=== PATIENT | female | born 1990 | race Caucasian/White ===

== ENCOUNTER 2017-12-04 11:36 | Emergency (ER) | payer MEDICAID, OTHER ==
[~2017-12-04] VITALS: Ht 165.1 cm; Wt 60.0 kg
[~2017-12-04 11:36] MED LIST: NAPR-1154 PO
[2017-12-04 11:50] VITALS: BP 147/57
[2017-12-04] MEDS ORDERED: ketorolac trometh inj. 60 MG/2 ML VIAL IM ONE (12:00)
[2017-12-04] MEDS ORDERED: oxyCODONE/APAP 10/325mg tablet PO ONE (12:00)
[2017-12-04] MEDS ORDERED: HYDR-565 PO (12:06)
== END 2017-12-04 12:38 | disposition home or self-care (01) ==
LOC: ER 11:36
DX: S22.32XA Fracture of one rib, left side, initial encounter for closed fracture (principal); Z88.5 Allergy status to narcotic agent; Z79.899 Other long term (current) drug therapy; W18.31XA Fall on same level due to stepping on an object, initial encounter; Y93.89 Activity, other specified; Y92.814 Boat as the place of occurrence of the external cause; Y99.8 Other external cause status
CPT/HCPCS: 96372; 99283; J1885

== ENCOUNTER 2018-07-26 10:23 | Emergency (ER) | payer MEDICAID ==
[~2018-07-26] VITALS: Ht 170.2 cm; Wt 77.0 kg
[2018-07-26 10:33] VITALS: BP 137/74
--- NOTE | 2018-07-26 10:52 | NUR ---
CALL PLACED TO SOC FOR PSYC CONSULT. PT IN QUEUE.
[2018-07-26 11:25] LABS: URINE HCG NEGATIVE (NEG)
[2018-07-26] MEDS ORDERED: LAMO25TA94 PO (11:53)
[2018-07-26] MEDS ORDERED: HYDR-3686 PO (11:53)
--- NOTE | 2018-07-26 12:01 | NUR ---
SPOKE WITH PSYCHIATRIST, SHE IS FAXING OVER HER RECOMMENDATIONS, PATIENT IS CONSIDERED LOW RISK PER THE SUICIDE RISK ASSESSMENT
== END 2018-07-26 12:18 | disposition home or self-care (01) ==
LOC: ER 10:23
DX: F32.9 Major depressive disorder, single episode, unspecified (principal); F41.9 Anxiety disorder, unspecified; G43.909 Migraine, unspecified, not intractable, without status migrainosus; Z88.6 Allergy status to analgesic agent
CPT/HCPCS: 81025; 99284

== ENCOUNTER 2018-12-24 14:41 | Emergency (ER) | payer MEDICAID ==
[~2018-12-24 14:41] MED LIST changes: +AMIT25TA10 PO; +AMOX-422 PO; -NAPR-1154 PO; +QUET50TA PO
[2018-12-24] MEDS ORDERED: HYDR-4353 PO (14:48)
== END 2018-12-24 14:45 | disposition home or self-care (01) ==
LOC: ER 14:41
DX: G89.18 Other acute postprocedural pain (principal); M79.642 Pain in left hand; G43.909 Migraine, unspecified, not intractable, without status migrainosus; Z88.5 Allergy status to narcotic agent; Z88.6 Allergy status to analgesic agent; Z79.899 Other long term (current) drug therapy
CPT/HCPCS: 99283

== ENCOUNTER 2019-06-27 16:01 | Emergency (ER) | payer MEDICAID ==
[~2019-06-27] VITALS: Ht 167.6 cm; Wt 68.2 kg
--- NOTE | 2019-06-27 16:12 | NUR ---
CALLED POISON CONTROL FOR OD SEROQUEL 50MG @1HR AGO. SPOKE WITH MINISTERIO, PHARMACIST. MONITOR AIRWAY FOR APNEA X3HRS. IF QTC >500, GIVE IV MAG 1-2GRAMS. IF HYPOTENSIVE, IVF AND REPOSITION.SZ CAN OCCUR IF PT TOOK >10,000MG. ETOH, APAP, TOX SCREEN, AND ASA LEVEL.
[2019-06-27] MEDS ORDERED: magnesium 2GM in 50ml NS 50 ML IV ONE ×2 (16:25→16:45)
[2019-06-27] MEDS ORDERED: normal saline 1000ML IV soln IVB ONE (16:25)
[2019-06-27 16:43] LABS: URINE HCG NEGATIVE (NEG)
[2019-06-27 16:43] LABS: BASOPHILS % (AUTO) 0.7 % (0-1); EOSINOPHILS # (AUTO) 0.1 X10'3 (0-0.9); EOSINOPHILS % (AUTO) 0.9 % (0-6); LYMPHOCYTES # (AUTO) 3.5 X10'3 (1.1-4.8); MONOCYTES # (AUTO) 0.6 X10'3 (0-0.9); MONOCYTES % (AUTO) 8.9 % (2-12); NEUTROPHILS # (AUTO) 2.3 X10'3 (1.8-7.7); WHITE BLOOD COUNT 6.5 X10'3 (4.5-11.0)
[2019-06-27 16:45] LABS: HEMATOCRIT 41.5 % (35.0-45.0); LYMPHOCYTES % (AUTO) 54.2 % (21-51); MEAN CORPUSCULAR HEMOGLOBIN 30.9 PG (27.0-31.0); MEAN CORPUSCULAR HGB CONC 33.9 g/dL (33.0-36.5); MEAN CORPUSCULAR VOLUME 91.3 FL (78-98); MEAN PLATELET VOLUME 7.8 FL (7.4-10.4); NEUTROPHILS % (AUTO) 35.3 % (42-75); PLATELET COUNT 315 X10'3 (140-440); RED BLOOD COUNT 4.54 X10'6 (4.20-5.60); RED CELL DISTRIBUTION WIDTH 13.7 % (11.5-14.5)
[2019-06-27 16:56] LABS: URINE AMPHETAMINE SCREEN NEGATIVE (Neg); URINE BARBITUATE SCREEN NEGATIVE (Neg); URINE BENZODIAZEPINES SCREEN NEGATIVE (Neg); URINE CANNABINOID SCREEN NEGATIVE (Neg); URINE COCAINE SCREEN NEGATIVE (Neg); URINE METHADONE SCREEN NEGATIVE (Neg); URINE OPIATE SCREEN NEGATIVE (Neg); URINE PHENCYCLIDINE SCREEN NEGATIVE (Neg)
[2019-06-27 17:06] LABS: TOTAL CELLS COUNTED 100
[2019-06-27 17:07] LABS: PLATELET ESTIMATE NORMAL
--- NOTE | 2019-06-27 17:21 | NUR ---
Pt continues to have low core temp reading on the capone cath. Additional warm blankets given to the patient for warming measures.
[2019-06-27 17:38] LABS: ALANINE AMINOTRANSFERASE 37 U/L (12-78); ALBUMIN 2.8 G/DL (3.4-5.0); ALBUMIN/GLOBULIN RATIO 0.7 (1.1-1.5); ALKALINE PHOSPHATASE 105 IU/L (46-116); ANION GAP 12 (8-16); ASPARTATE AMINO TRANSFERASE 29 U/L (10-37); BILIRUBIN,TOTAL 0.1 MG/DL (0.1-1.0); BLOOD UREA NITROGEN 6 MG/DL (7-18); CALCIUM 7.6 MG/DL (8.5-10.1); CHLORIDE 116 MMOL/L (99-107); CREATININE 0.75 MG/DL (0.40-0.90); ETHANOL 0.194 GM/DL (0.0-0.010); GLUCOSE 122 MG/DL (70-104); POTASSIUM 3.6 MMOL/L (3.5-5.1); SODIUM 148 MMOL/L (135-145); TOTAL CARBON DIOXIDE 20.4 MMOL/L (24-32); TOTAL PROTEIN 6.6 G/DL (6.4-8.2); eGFR > 90 ML/MIN
[2019-06-27 17:43] LABS: ACETAMINOPHEN < 2.0 UG/ML (10-30)
--- NOTE | 2019-06-27 21:18 | NUR ---
Pt assisted via w/c from ED bed 3 to ED bed 25 and care of the patient transferred to [facility] L[facility]. Pt to be continually monitored while awaiting evaluation from [facility].
--- NOTE | 2019-06-27 21:20 | NUR ---
Pt transferred to bed 25 via wheelchair; able to walk to bed and change into green scrubs independently. Pt states "I just want to sleep" but agrees to complete admit process. Pt was intoxicated and ingested Seroquel 50mg tablets (estimated 20 tabs by EMS). This medication is prescribed for her r/t to dg Bipolar. Pt stated there was not a trigger for this attempt, just that her depression and mood "go up and down." Pt has history of suicide attempts by cutting, but states this is her first OD and hospitlization r/t mental health. Pt denies SI but states depression is "high; I don't feel much of anything", Denies Anxiety. Mood: "I don't feel anything", Appears downcast; Affect: Flat; Eye Contact: Poor; Thought Process: Linear; Speech: Normal, soft, Minimal responses. Pt states she has not been complaint with prescribed medications for her mood disorder. Social Hx: Currently living with ex bf, states she will soon be kicked out and without a residence No job From [place]: Maintains contact with Dad, Estranged from siblings and mother Local friends Recreational Drug Use: Hx Cocaine (infreq., last used 06/24); THC (infreq.); Meth (Infreq., retracted statement saying last use was 06/27), ETOH (0.194 at admit) Addendum: 06/27/19 at 2247 by [facility] Med Hx: Migraines, Asthma, "Hole in heart"
[2019-06-27 22:06] LABS: CLARITY,URINE CLEAR (Clear); COLOR,URINE STRAW (Yellow); GLUCOSE, URINE NEGATIVE (Neg); KETONES,URINE NEGATIVE (Neg); LEUKOCYTE ESTERASE ,URINE NEGATIVE (Neg); NITRITES, URINE NEGATIVE (Neg); OCCULT BLOOD,URINE TRACE-INTACT (Neg); PROTEIN,URINE NEGATIVE (Neg); UROBILINOGEN,URINE 0.2 E.U/dL (0.2-1.0)
[2019-06-27 22:07] LABS: UA COLLECTION TYPE FOLEY CATH
[2019-06-27 22:12] LABS: BACTERIA,URINE NONE SEEN /HPF (Neg); RBC,URINE 0-2 /HPF (0-2); WBC,URINE NONE SEEN /HPF (0-4)
[2019-06-27 22:13] LABS: SQUAMOUS EPITHELIAL CELL,UR FEW /LPF (FEW)
--- NOTE | 2019-06-28 00:15 | NUR ---
Pt sleeping, no distress noted. Observed to changed position and take a sip of water before returning to sleep.
--- NOTE | 2019-06-28 01:15 | NUR ---
Pt sleeping, supine. Breaths even and unlabored.
--- NOTE | 2019-06-28 04:15 | NUR ---
pt packet faxed to [facility]
--- NOTE | 2019-06-28 04:51 | NUR ---
Pt sleeping. Addendum: 06/28/19 at 0452 by [facility] No distress noted, will continue to monitor.
[2019-06-28 05:39] VITALS: BP 101/68
--- NOTE | 2019-06-28 07:14 | NUR ---
Patient sleeping. Respirations unlabored. NAD at this time.
--- NOTE | 2019-06-28 08:45 | NUR ---
pt is supine, appears to be sleeping. does not appear to be in distress.
--- NOTE | 2019-06-28 08:54 | NUR ---
[facility] IS AT BEDSIDE TALKING WITH THE PATIENT.
--- NOTE | 2019-06-28 09:40 | NUR ---
PT BOYFRIEND IN TO SEE PT, NO SPEAKING WITH SHIRIN FROM [facility]
== END 2019-06-28 10:14 | disposition home or self-care (01) ==
LOC: ER 16:01
DX: T43.592A Poisoning by other antipsychotics and neuroleptics, intentional self-harm, initial encounter (principal); F10.920 Alcohol use, unspecified with intoxication, uncomplicated; G43.909 Migraine, unspecified, not intractable, without status migrainosus; R41.82 Altered mental status, unspecified; Z88.5 Allergy status to narcotic agent; Z79.899 Other long term (current) drug therapy; Y92.89 Other specified places as the place of occurrence of the external cause; Y90.9 Presence of alcohol in blood, level not specified
CPT/HCPCS: 36415; 80053; 80305; 80320; 80329; 81001; 81025; 85025; 93005; 96365; 96366; 99285; J3475; J7030

== ENCOUNTER 2019-10-22 14:55 | Emergency (ER) | payer MEDICAID ==
[~2019-10-22] VITALS: Ht 170.2 cm; Wt 67.2 kg
[~2019-10-22 14:55] MED LIST changes: -AMIT25TA10 PO; -AMOX-422 PO
[2019-10-22 14:57] VITALS: BP 110/78
[2019-10-22] MEDS ORDERED: ketorolac trometh. 30mg/ml inj. IM ONE (16:50)
[2019-10-22] MEDS ORDERED: acetaminophen 325mg tablet PO ONE (16:50)
== END 2019-10-22 17:22 | disposition home or self-care (01) ==
LOC: ER 14:55
DX: S22.31XA Fracture of one rib, right side, initial encounter for closed fracture (principal); G43.909 Migraine, unspecified, not intractable, without status migrainosus; Z88.5 Allergy status to narcotic agent; W18.30XA Fall on same level, unspecified, initial encounter; Y93.89 Activity, other specified; Y92.89 Other specified places as the place of occurrence of the external cause; Y99.9 Unspecified external cause status
CPT/HCPCS: 71101; 96372; 99283; J1885

== ENCOUNTER 2019-10-28 21:52 | Emergency (ER) | payer MEDICAID ==
[~2019-10-28] VITALS: Ht 170.2 cm; Wt 68.1 kg
[2019-10-28 21:59] VITALS: BP 112/82
== END 2019-10-28 22:43 | disposition home or self-care (01) ==
LOC: ER 21:52
DX: S00.11XA Contusion of right eyelid and periocular area, initial encounter (principal); G43.909 Migraine, unspecified, not intractable, without status migrainosus; F17.200 Nicotine dependence, unspecified, uncomplicated; F12.90 Cannabis use, unspecified, uncomplicated; Z88.5 Allergy status to narcotic agent; Y04.0XXA Assault by unarmed brawl or fight, initial encounter; Y93.89 Activity, other specified; Y92.89 Other specified places as the place of occurrence of the external cause; Y99.9 Unspecified external cause status
CPT/HCPCS: 99283

== ENCOUNTER 2020-03-02 09:01 | Emergency (ER) | payer MEDICAID ==
[~2020-03-02] VITALS: Ht 170.2 cm; Wt 65.0 kg
[2020-03-02 09:05] VITALS: BP 125/72
[2020-03-02] MEDS ORDERED: PENI250T2 PO (10:45)
== END 2020-03-02 10:49 | disposition home or self-care (01) ==
LOC: ER 09:01
DX: K08.89 Other specified disorders of teeth and supporting structures (principal); G43.909 Migraine, unspecified, not intractable, without status migrainosus; F12.90 Cannabis use, unspecified, uncomplicated; Z72.89 Other problems related to lifestyle; Z88.5 Allergy status to narcotic agent; Z79.899 Other long term (current) drug therapy
CPT/HCPCS: 99283

== ENCOUNTER 2020-06-30 21:53 | Emergency (ER) | payer MEDICAID, OTHER ==
[~2020-06-30] VITALS: Ht 170.2 cm; Wt 60.8 kg
[2020-06-30] MEDS ORDERED: acetaminophen 325mg tablet PO ONE (23:50)
[2020-07-01] MEDS ORDERED: MEDR150D9 IM (00:11)
--- NOTE | 2020-07-01 00:16 | NUR ---
Clarified with MD if x ray protocol to right lower extremity needed. MD prefers US.
--- NOTE | 2020-07-01 01:43 | NUR ---
VASCULAR US AT BEDSIDE.
[2020-07-01 02:27] VITALS: BP 132/92
== END 2020-07-01 02:36 | disposition home or self-care (01) ==
LOC: ER 21:53
DX: M79.671 Pain in right foot (principal); G43.909 Migraine, unspecified, not intractable, without status migrainosus; F12.90 Cannabis use, unspecified, uncomplicated; Z72.89 Other problems related to lifestyle; Z88.5 Allergy status to narcotic agent; Z88.6 Allergy status to analgesic agent; Z79.899 Other long term (current) drug therapy; W22.8XXA Striking against or struck by other objects, initial encounter; Y93.89 Activity, other specified; Y92.89 Other specified places as the place of occurrence of the external cause; Y99.0 Civilian activity done for income or pay
CPT/HCPCS: 93971; 99284

== ENCOUNTER 2021-12-13 22:26 | Emergency (ER) | payer MEDICAID, OTHER ==
[~2021-12-13] VITALS: Ht 167.6 cm; Wt 72.7 kg
[~2021-12-13 22:26] MED LIST changes: +MEDR150D9 IM; -QUET50TA PO
[2021-12-13] MEDS ORDERED: normal saline 1000ml 1,000 ML IV ONE (22:50)
[2021-12-13] MEDS ORDERED: ONDA4TAB12 PO (22:55)
[2021-12-13 23:16] LABS: BASOPHILS # (AUTO) 0.1 X10'3 (0-0.2); BASOPHILS % (AUTO) 0.5 % (0-1); EOSINOPHILS # (AUTO) 0.1 X10'3 (0-0.9); EOSINOPHILS % (AUTO) 0.9 % (0-6); HEMATOCRIT 38.5 % (35.0-45.0); HEMOGLOBIN 12.9 g/dl (12.0-16.0); LYMPHOCYTES # (AUTO) 3.2 X10'3 (1.1-4.8); LYMPHOCYTES % (AUTO) 31.5 % (21-51); MEAN CORPUSCULAR HEMOGLOBIN 30.4 PG (27.0-31.0); MEAN CORPUSCULAR HGB CONC 33.5 g/dL (33.0-36.5); MEAN CORPUSCULAR VOLUME 90.7 FL (78-98); MEAN PLATELET VOLUME 7.1 FL (7.4-10.4); MONOCYTES # (AUTO) 0.8 X10'3 (0-0.9); MONOCYTES % (AUTO) 8.2 % (2-12); NEUTROPHILS % (AUTO) 58.9 % (42-75); PLATELET COUNT 320 X10'3 (140-440); RED BLOOD COUNT 4.24 X10'6 (4.20-5.60); RED CELL DISTRIBUTION WIDTH 13.3 % (11.5-14.5); WHITE BLOOD COUNT 10.1 X10'3 (4.5-11.0)
[2021-12-13 23:20] LABS: URINE HCG NEGATIVE (NEG)
[2021-12-13 23:23] LABS: CLARITY,URINE CLEAR (Clear); COLOR,URINE YELLOW (Yellow); GLUCOSE, URINE NEGATIVE (Neg); KETONES,URINE NEGATIVE (Neg); LEUKOCYTE ESTERASE ,URINE NEGATIVE (Neg); NITRITES, URINE NEGATIVE (Neg); OCCULT BLOOD,URINE SMALL (Neg); PROTEIN,URINE NEGATIVE (Neg); UROBILINOGEN,URINE 0.2 E.U/dL (0.2-1.0)
[2021-12-13 23:25] LABS: ALANINE AMINOTRANSFERASE 51 U/L (12-78); ALBUMIN 3.3 G/DL (3.4-5.0); ALBUMIN/GLOBULIN RATIO 0.8 (1.1-1.5); ALKALINE PHOSPHATASE 99 IU/L (46-116); ANION GAP 7 (8-16); ASPARTATE AMINO TRANSFERASE 29 U/L (10-37); BILIRUBIN,TOTAL 0.1 MG/DL (0.1-1.0); BLOOD UREA NITROGEN 13 MG/DL (7-18); BUN/CREATININE RATIO 13.3 (6.6-38.0); CALCIUM 8.5 MG/DL (8.5-10.1); CHLORIDE 108 MMOL/L (99-107); CREATININE 0.98 MG/DL (0.40-0.90); GLUCOSE 108 MG/DL (70-104); LIPASE 106 U/L (73-393); POTASSIUM 3.9 MMOL/L (3.5-5.1); SODIUM 140 MMOL/L (135-145); TOTAL CARBON DIOXIDE 25.4 MMOL/L (24-32); TOTAL PROTEIN 7.3 G/DL (6.4-8.2); eGFR 66 ML/MIN
[2021-12-13 23:28] LABS: UA COLLECTION TYPE CLN CATCH MIDSTREAM; WBC,URINE NONE SEEN /HPF (0-4)
[2021-12-13 23:29] LABS: BACTERIA,URINE FEW /HPF (Neg); RBC,URINE 0-2 /HPF (0-2); SQUAMOUS EPITHELIAL CELL,UR FEW /LPF (FEW)
[2021-12-13 23:52] LABS: HCG SERUM QL NEGATIVE
[2021-12-14 00:32] VITALS: BP 162/94
== END 2021-12-14 00:12 | disposition home or self-care (01) ==
LOC: ER 22:26
DX: E86.0 Dehydration (principal); A08.4 Viral intestinal infection, unspecified; G43.909 Migraine, unspecified, not intractable, without status migrainosus; F12.90 Cannabis use, unspecified, uncomplicated; Z72.89 Other problems related to lifestyle; Z88.5 Allergy status to narcotic agent; Z88.6 Allergy status to analgesic agent; Z79.899 Other long term (current) drug therapy
CPT/HCPCS: 80053; 81001; 81025; 83690; 84703; 85025; 96360; 99283; J7030

== ENCOUNTER 2022-04-23 14:01 | Emergency (ER) | payer MEDICAID ==
[~2022-04-23] VITALS: Ht 167.6 cm; Wt 80.9 kg
[~2022-04-23 14:01] MED LIST changes: +ONDA4TAB12 PO
[2022-04-23 15:02] LABS: CLARITY,URINE SLIGHTLY CLOUDY (Clear); COLOR,URINE YELLOW (Yellow); GLUCOSE, URINE NEGATIVE (Neg); KETONES,URINE NEGATIVE (Neg); LEUKOCYTE ESTERASE ,URINE TRACE (Neg); NITRITES, URINE NEGATIVE (Neg); OCCULT BLOOD,URINE TRACE-INTACT (Neg); PH,URINE 5.5 (4.8-8.0); PROTEIN,URINE NEGATIVE (Neg); UROBILINOGEN,URINE 0.2 E.U/dL (0.2-1.0)
[2022-04-23 15:04] LABS: URINE HCG NEGATIVE (NEG)
[2022-04-23 15:11] LABS: UA COLLECTION TYPE CLN CATCH MIDSTREAM
[2022-04-23 15:12] LABS: BACTERIA,URINE FEW /HPF (Neg); RBC,URINE 0-2 /HPF (0-2); SQUAMOUS EPITHELIAL CELL,UR FEW /LPF (FEW); WBC,URINE 0-4 /HPF (0-4)
[2022-04-23] MEDS ORDERED: CIPR-259 PO (15:20)
[2022-04-23] MEDS ORDERED: ciprofloxacin 250mg tablet PO ONE (15:25)
[2022-04-23] MEDS ORDERED: ketorolac tromethamine 15mg/ml inj. IM ONE (15:25)
[2022-04-23 15:30] VITALS: BP 123/75
== END 2022-04-23 16:02 | disposition home or self-care (01) ==
LOC: ER 14:01
DX: N12 Tubulo-interstitial nephritis, not specified as acute or chronic (principal); G43.909 Migraine, unspecified, not intractable, without status migrainosus; Z88.5 Allergy status to narcotic agent; Z79.899 Other long term (current) drug therapy; F12.10 Cannabis abuse, uncomplicated
CPT/HCPCS: 81001; 81025; 87088; 96372; 99283; J1885

== ENCOUNTER 2022-04-26 21:02 | Emergency (ER) | payer MEDICAID ==
[~2022-04-26] VITALS: Ht 167.6 cm; Wt 80.9 kg
[~2022-04-26 21:02] MED LIST changes: +CIPR-259 PO
[2022-04-26 21:06] VITALS: BP 123/84
[2022-04-26 21:39] LABS: CLARITY,URINE CLEAR (Clear); COLOR,URINE YELLOW (Yellow); GLUCOSE, URINE NEGATIVE (Neg); KETONES,URINE NEGATIVE (Neg); LEUKOCYTE ESTERASE ,URINE NEGATIVE (Neg); NITRITES, URINE NEGATIVE (Neg); OCCULT BLOOD,URINE NEGATIVE (Neg); PH,URINE 5.5 (4.8-8.0); PROTEIN,URINE NEGATIVE (Neg); UROBILINOGEN,URINE 0.2 E.U/dL (0.2-1.0)
[2022-04-26 21:40] LABS: URINE HCG NEGATIVE (NEG)
[2022-04-26 21:42] LABS: BASOPHILS % (AUTO) 0.4 % (0-1); EOSINOPHILS # (AUTO) 0.1 X10'3 (0-0.9); EOSINOPHILS % (AUTO) 1.3 % (0-6); HEMATOCRIT 38.5 % (35.0-45.0); HEMOGLOBIN 12.8 g/dl (12.0-16.0); LYMPHOCYTES % (AUTO) 40.3 % (21-51); MEAN CORPUSCULAR HEMOGLOBIN 29.9 PG (27.0-31.0); MEAN CORPUSCULAR HGB CONC 33.3 g/dL (33.0-36.5); MEAN CORPUSCULAR VOLUME 89.7 FL (78-98); MEAN PLATELET VOLUME 7.4 FL (7.4-10.4); MONOCYTES % (AUTO) 10.1 % (2-12); NEUTROPHILS # (AUTO) 4.7 X10'3 (1.8-7.7); NEUTROPHILS % (AUTO) 47.9 % (42-75); PLATELET COUNT 315 X10'3 (140-440); RED BLOOD COUNT 4.29 X10'6 (4.20-5.60); RED CELL DISTRIBUTION WIDTH 13.7 % (11.5-14.5); WHITE BLOOD COUNT 9.8 X10'3 (4.5-11.0)
[2022-04-26 21:44] LABS: UA COLLECTION TYPE CLN CATCH MIDSTREAM
[2022-04-26 21:59] LABS: ALANINE AMINOTRANSFERASE 29 U/L (12-78); ALBUMIN 3.7 G/DL (3.4-5.0); ALKALINE PHOSPHATASE 115 IU/L (46-116); ANION GAP 8 (8-16); ASPARTATE AMINO TRANSFERASE 23 U/L (10-37); BILIRUBIN,TOTAL 0.2 MG/DL (0.1-1.0); BLOOD UREA NITROGEN 34 MG/DL (7-18); CALCIUM 9.1 MG/DL (8.5-10.1); CHLORIDE 107 MMOL/L (99-107); GLUCOSE 101 MG/DL (70-104); LIPASE 222 U/L (73-393); POTASSIUM 4.2 MMOL/L (3.5-5.1); SODIUM 139 MMOL/L (135-145); TOTAL CARBON DIOXIDE 24.5 MMOL/L (24-32); TOTAL PROTEIN 7.5 G/DL (6.4-8.2); eGFR 64 ML/MIN
[2022-04-26] MEDS ORDERED: NAPR-56 PO (22:05)
[2022-04-26] MEDS ORDERED: LIDO700A32 TOP (22:05)
[2022-04-26] MEDS ORDERED: ORPH100T2 PO (22:05)
[2022-04-26] MEDS ORDERED: LIDOcaine 5% patch TP STA (22:06)
[2022-04-26] MEDS ORDERED: ketorolac trometh inj. 60 MG/2 ML VIAL IM ONE (22:10)
[2022-04-26] MEDS ORDERED: orphenadrine citrate 60mg/2ml inj. IM ONE (22:10)
--- NOTE | 2022-04-26 22:27 | NUR ---
IM GIVEN X2 TOPICAL APPLIED
== END 2022-04-26 22:29 | disposition home or self-care (01) ==
LOC: ER 21:03
DX: S39.012A Strain of muscle, fascia and tendon of lower back, initial encounter (principal); M62.830 Muscle spasm of back; G43.909 Migraine, unspecified, not intractable, without status migrainosus; F12.90 Cannabis use, unspecified, uncomplicated; Z72.89 Other problems related to lifestyle; Z88.5 Allergy status to narcotic agent; Z88.8 Allergy status to other drugs, medicaments and biological substances; Z79.2 Long term (current) use of antibiotics; X58.XXXA Exposure to other specified factors, initial encounter; Y93.89 Activity, other specified; Y92.89 Other specified places as the place of occurrence of the external cause; Y99.8 Other external cause status
CPT/HCPCS: 36415; 80053; 81003; 81025; 83690; 85025; 96372; 99284; J1885; J2360

== ENCOUNTER 2022-07-27 21:47 | Emergency (ER) | payer MEDICAID ==
[~2022-07-27] VITALS: Ht 167.6 cm; Wt 84.1 kg
[~2022-07-27 21:47] MED LIST changes: -CIPR-259 PO; +LIDO700A32 TOP; +ORPH100T2 PO
[2022-07-27 22:34] LABS: BASOPHILS % (AUTO) 0.3 % (0-1); EOSINOPHILS # (AUTO) 0.1 X10'3 (0-0.9); EOSINOPHILS % (AUTO) 1.6 % (0-6); HEMATOCRIT 38.2 % (35.0-45.0); MEAN CORPUSCULAR HEMOGLOBIN 29.8 PG (27.0-31.0); MEAN CORPUSCULAR VOLUME 87.9 FL (78-98); MEAN PLATELET VOLUME 7.5 FL (7.4-10.4); MONOCYTES # (AUTO) 0.8 X10'3 (0-0.9); MONOCYTES % (AUTO) 8.7 % (2-12); NEUTROPHILS # (AUTO) 4.1 X10'3 (1.8-7.7); NEUTROPHILS % (AUTO) 45.4 % (42-75); PLATELET COUNT 285 X10'3 (140-440); RED BLOOD COUNT 4.35 X10'6 (4.20-5.60)
[2022-07-27 22:35] LABS: CLARITY,URINE CLEAR (Clear); COLOR,URINE YELLOW (Yellow); GLUCOSE, URINE NEGATIVE (Neg); KETONES,URINE NEGATIVE (Neg); LEUKOCYTE ESTERASE ,URINE NEGATIVE (Neg); NITRITES, URINE NEGATIVE (Neg); OCCULT BLOOD,URINE SMALL (Neg); PH,URINE 5.5 (4.8-8.0); PROTEIN,URINE NEGATIVE (Neg); UROBILINOGEN,URINE 0.2 E.U/dL (0.2-1.0)
[2022-07-27 22:38] LABS: URINE HCG NEGATIVE (NEG)
[2022-07-27 22:40] LABS: UA COLLECTION TYPE CLN CATCH MIDSTREAM
[2022-07-27 22:42] LABS: BACTERIA,URINE NONE SEEN /HPF (Neg); RBC,URINE 0-2 /HPF (0-2); SQUAMOUS EPITHELIAL CELL,UR FEW /LPF (FEW); WBC,URINE 0-4 /HPF (0-4)
[2022-07-27 22:48] LABS: ALANINE AMINOTRANSFERASE 25 U/L (12-78); ALBUMIN 3.6 G/DL (3.4-5.0); ALKALINE PHOSPHATASE 88 IU/L (46-116); ANION GAP 8 (8-16); ASPARTATE AMINO TRANSFERASE 24 U/L (10-37); BILIRUBIN,TOTAL 0.2 MG/DL (0.1-1.0); BLOOD UREA NITROGEN 26 MG/DL (7-18); CALCIUM 8.8 MG/DL (8.5-10.1); CHLORIDE 107 MMOL/L (99-107); GLUCOSE 85 MG/DL (70-104); LIPASE 215 U/L (73-393); POTASSIUM 3.9 MMOL/L (3.5-5.1); SODIUM 140 MMOL/L (135-145); TOTAL CARBON DIOXIDE 25.3 MMOL/L (24-32); TOTAL PROTEIN 7.3 G/DL (6.4-8.2); eGFR 64 ML/MIN
[2022-07-28 00:01] VITALS: BP 130/76
[2022-07-28] MEDS ORDERED: loperamide 2mg capsule PO ONE (00:10)
[2022-07-28] MEDS ORDERED: ondansetron 4mg rapidly disintigrating tab PO ONE (00:10)
[2022-07-28] MEDS ORDERED: ONDA8TAB13 PO (00:38)
[2022-07-28] MEDS ORDERED: LOPE2CAP PO (00:38)
[2022-07-28 00:49] LABS: URINE AMPHETAMINE SCREEN NEGATIVE (Neg); URINE BARBITUATE SCREEN NEGATIVE (Neg); URINE BENZODIAZEPINES SCREEN NEGATIVE (Neg); URINE CANNABINOID SCREEN NEGATIVE (Neg); URINE COCAINE SCREEN NEGATIVE (Neg); URINE METHADONE SCREEN NEGATIVE (Neg); URINE OPIATE SCREEN NEGATIVE (Neg); URINE PHENCYCLIDINE SCREEN NEGATIVE (Neg)
--- NOTE | 2022-07-28 01:57 | NUR ---
i AGREE WITH THE M48 M60 [employer] ASSESSMENTS
== END 2022-07-28 01:02 | disposition home or self-care (01) ==
LOC: ER 21:48
DX: K52.9 Noninfective gastroenteritis and colitis, unspecified (principal); G43.909 Migraine, unspecified, not intractable, without status migrainosus; F12.10 Cannabis abuse, uncomplicated; Z88.5 Allergy status to narcotic agent; Z88.6 Allergy status to analgesic agent; Z79.899 Other long term (current) drug therapy
CPT/HCPCS: 36415; 80053; 80305; 81001; 81025; 83690; 85025; 99283

== ENCOUNTER 2023-05-11 00:43 | Emergency (ER) | payer MEDICAID ==
[~2023-05-11] VITALS: Ht 167.6 cm; Wt 86.9 kg
[~2023-05-11 00:43] MED LIST changes: +LOPE2CAP PO; +ONDA8TAB13 PO; -ORPH100T2 PO; +ORPH100T4 PO
[2023-05-11 00:47] VITALS: BP 155/96; PULSE 107; RESP 17; TEMP 99; O2SAT 98
== END 2023-05-11 01:54 | disposition home or self-care (01) ==
LOC: ER 00:44
DX: J02.0 Streptococcal pharyngitis (principal); G43.909 Migraine, unspecified, not intractable, without status migrainosus; F31.9 Bipolar disorder, unspecified; F12.90 Cannabis use, unspecified, uncomplicated; Z88.5 Allergy status to narcotic agent; Z88.6 Allergy status to analgesic agent; Z79.899 Other long term (current) drug therapy
CPT/HCPCS: 99282

== ENCOUNTER 2024-07-12 07:43 | Emergency (ER) | payer MEDICAID ==
[~2024-07-12] VITALS: Ht 167.6 cm; Wt 63.5 kg
[~2024-07-12 07:43] MED LIST changes: +ONDA-243 PO; +ONDA-245 PO; -ONDA4TAB12 PO; -ONDA8TAB13 PO
[2024-07-12 07:45] VITALS: BP 135/85; PULSE 90; RESP 16; TEMP 97.6; O2SAT 100
[2024-07-12] MEDS ORDERED: magnesium citrate 296ml oral solution PO ONE (09:30)
[2024-07-12] MEDS: mag hydrox/Alum hydrox/simeth 30ml oral suspension PO ONE (09:48)
[2024-07-12] MEDS: LIDOcaine 2% Viscous 15ml cup TP ONE (09:48)
== END 2024-07-12 10:13 | disposition home or self-care (01) ==
LOC: ER 07:44
DX: J02.9 Acute pharyngitis, unspecified (principal); R11.10 Vomiting, unspecified; G43.909 Migraine, unspecified, not intractable, without status migrainosus; F41.9 Anxiety disorder, unspecified; F31.9 Bipolar disorder, unspecified; F12.90 Cannabis use, unspecified, uncomplicated; Z88.5 Allergy status to narcotic agent; Z88.6 Allergy status to analgesic agent; Z79.899 Other long term (current) drug therapy
CPT/HCPCS: 99283